=== PATIENT | female | born 1955 | race Caucasian/White ===

== ENCOUNTER 2019-11-29 22:14 | Emergency (ER) | payer OTHER, MEDICARE ==
[~2019-11-29] VITALS: Ht 157.5 cm; Wt 95.3 kg
[2019-11-29] MEDS ORDERED: DICYCLOMINE HCL20 MG PO (23:27)
--- NOTE | 2019-11-29 23:51 | Diagnostic Imaging Report ---
EXAM: CT Abdomen and Pelvis WITHOUT contrast INDICATION: Abdominal pain, epigastric pain COMPARISON: None. TECHNIQUE: Abdomen and pelvis were scanned utilizing a multidetector helical scanner from the lung base to the pubic symphysis without administration of IV contrast. Absence of intravenous contrast decreases sensitivity for detection of focal lesions and vascular pathology. Coronal and sagittal reformations were obtained. Routine protocol was performed. IV CONTRAST: None ORAL CONTRAST: None COMPLICATIONS: None RADIATION DOSE: Total DLP: 1228 mGy*cm Estimated effective dose: (DLP x 0.015 x size factor) mSv CTDIvol has been reviewed. It is below the limits set by the Radiation Protocol Committee (RPC). Dose modulation, iterative reconstruction, and/or weight based adjustment of the mA/kV was utilized to reduce the radiation dose to as low as reasonably achievable. FINDINGS: LINES and TUBES: None. LOWER THORAX: Triple vessel coronary artery calcifications. HEPATOBILIARY: No focal hepatic lesions. No biliary ductal dilation. GALLBLADDER: Hydropic gallbladder (12.5 cm in length, 5.4 cm in transverse dimension) with multiple calcified stones at the gallbladder neck. Subtle gallbladder wall thickening. SPLEEN: No splenomegaly. PANCREAS: No focal masses or ductal dilatation. ADRENALS: No adrenal nodules KIDNEYS/URETERS: No hydronephrosis. No cystic or solid mass lesions. No stones. Mild bilateral renal parenchymal atrophy. GI TRACT: No abnormal distention, wall thickening, or evidence of bowel obstruction. 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 Appendix is normal. PELVIC ORGANS/BLADDER: Small posterior uterine fibroid. LYMPH NODES: No lymphadenopathy. VESSELS: Unremarkable. PERITONEUM / RETROPERITONEUM: No free air or fluid. BONES: Degenerative changes in the spine hips and pelvis. SOFT TISSUES: Unremarkable. IMPRESSION: Gallstones at the gallbladder neck, gallbladder hydrops, and mild gallbladder wall thickening, compatible with acute obstructive calculus cholecystitis. Triple vessel coronary artery calcific atherosclerosis. Signed by: Sy Grande DO on 11/29/2019 11:48 PM
--- NOTE | 2019-11-30 00:10 | NUR ---
US NOTIFIED, ETA 40 MINUTES
[2019-11-30] MEDS ORDERED: MAGNESIUM/ALUMINUM/SIMETHICONE 30 ML UDC ONE (00:55)
--- NOTE | 2019-11-30 02:22 | Diagnostic Imaging Report ---
EXAM: Right Upper Quadrant Ultrasound with Doppler INDICATION: Right upper quadrant/epigastric pain COMPARISON: Abdominal CT 11/29/2019. TECHNIQUE: Transverse and longitudinal images of the right upper abdomen were obtained. Grayscale, color Doppler and spectral waveform analysis of the hepatic vasculature and splenic vein were performed. FINDINGS: Liver: Size: 18 cm in the right midclavicular line, normal Appearance: Normal echogenicity, smooth contour Mass: No focal masses Gallbladder: Stones/Sludge: None Wall: 0.2 cm Appearance: Hydropic. Sonographic Gutiérrez's Sign: Negative Bile Ducts: Intrahepatic Ducts: No dilatation Extrahepatic Ducts: Common bile duct measures 0.4 cm, no dilatation Pancreas: Incompletely visualized due to overlying bowel gas, but no abnormality identified involving the visualized portions of the pancreas. Right Kidney: Size: 10.3 cm Echogenicity: Normal Parenchymal thickness: Normal Collecting system: No hydronephrosis Stones: None Cyst/Mass: None Vessels: Main Portal Vein: Diameter: Normal size. Normal flow direction. Aorta: Visualized portions are normal Inferior Vena Cava: Visualized portions are normal Free Fluid: No ascites or pleural effusion IMPRESSION: Hydropic gallbladder. No gallstones seen on this exam although gallbladder stones were seen on day prior abdominal CT. Findings remain concerning for obstructive cholecystitis. Signed by: Sy Grande DO on 11/30/2019 2:20 AM
[2019-11-30 05:06] VITALS: BP 154/88
== END 2019-11-30 05:14 | disposition other institution (70) ==
LOC: FSED 22:14
DX: R10.13 Epigastric pain (principal); R11.0 Nausea; K80.70 Calculus of gallbladder and bile duct without cholecystitis without obstruction; I10 Essential (primary) hypertension; E11.9 Type 2 diabetes mellitus without complications; E78.5 Hyperlipidemia, unspecified
CPT/HCPCS: 74176; 76705; 80048; 80076; 81003; 85025; 93005; 99284